=== PATIENT | female | born 1935 | race Hispanic/Latino ===

== ENCOUNTER → 2023-12-16 | Outpatient (CLI) | payer MEDICARE ==
[~2023-12-16] MED LIST: ATOR10 PO; DULA0.75 SQ; ERGO500014 PO; ESCI20TA38 PO; INSU100I24 SQ; LACT10SO5 PO; LETR2.5T7 PO; LISI10TA24 PO; METO25TA6 PO; MULT-1258 PO; TRAM50TA4 PO
[2023-12-16 12:42] LABS: POTASSIUM 4.8 mmol/L (3.5-5.1); THYROID STIMULATING HORMONE 2.87 uIU/mL (0.36-3.74)
== END | disposition home or self-care (01) ==
LOC: LAB 10:06
PROVIDERS: ATTEND Internal Medicine Cardiovascular Disease
DX: I10 Essential (primary) hypertension (principal); I48.0 Paroxysmal atrial fibrillation
CPT/HCPCS: 36415; 80048; 84443